=== PATIENT | female | born 1995 | race Two or more races ===

== ENCOUNTER 2020-02-27 10:39 | Emergency (ER) | payer MEDICAID ==
[~2020-02-27] VITALS: Ht 152.4 cm; Wt 57.0 kg
[2020-02-27] MEDS ORDERED: IBUPROFEN 600MG TABLET PO ONE (11:30)
[2020-02-27 13:11] VITALS: BP 109/68
== END 2020-02-27 13:14 | disposition home or self-care (01) ==
LOC: ER 10:39
DX: S80.02XA Contusion of left knee, initial encounter (principal); S50.12XA Contusion of left forearm, initial encounter; Y04.0XXA Assault by unarmed brawl or fight, initial encounter; Y93.89 Activity, other specified; Y92.488 Other paved roadways as the place of occurrence of the external cause
CPT/HCPCS: 71045; 73090; 73562; 81025; 99284